=== PATIENT | male | born 1995 | race African-American/Black ===

== ENCOUNTER 2020-07-06 10:10 | Emergency (ER) | payer OTHER | END 2020-07-06 14:34 | disposition home or self-care (01) | LOC: FER 10:10 | DX: T14.8XXA Other injury of unspecified body region, initial encounter (principal); M79.631 Pain in right forearm; M79.602 Pain in left arm; M79.652 Pain in left thigh; M54.2 Cervicalgia; V49.40XA Driver injured in collision with unspecified motor vehicles in traffic accident, initial encounter; Y92.410 Unspecified street and highway as the place of occurrence of the external cause | CPT/HCPCS: 99283 ==